=== PATIENT | female | born 1995 | race Two or more races ===

== ENCOUNTER 2017-12-19 04:34 | Emergency (ER) | payer MEDICAID, OTHER ==
[~2017-12-19] VITALS: Ht 160 cm; Wt 64.0 kg
[2017-12-19 07:31] VITALS: BP 113/82
== END 2017-12-19 07:44 | disposition home or self-care (01) ==
LOC: ER 04:36
DX: S16.1XXA Strain of muscle, fascia and tendon at neck level, initial encounter (principal); S39.012A Strain of muscle, fascia and tendon of lower back, initial encounter; R51 Headache; V49.59XA Passenger injured in collision with other motor vehicles in traffic accident, initial encounter; Y93.89 Activity, other specified; Y92.410 Unspecified street and highway as the place of occurrence of the external cause; Y99.8 Other external cause status
CPT/HCPCS: 70450; 72040; 72100